=== PATIENT | female | born 2000 | race Caucasian/White ===

== ENCOUNTER 2019-12-12 18:34 | Emergency (ER) | payer SELFPAY ==
[~2019-12-12] VITALS: Ht 177.8 cm; Wt 61.4 kg
[~2019-12-12 18:34] MED LIST: ATIVAN0.5 MG PO
[2019-12-12 19:13] VITALS: BP 121/80
[2019-12-12] MEDS ORDERED: FIORICET PO (19:17)
[2019-12-12] MEDS ORDERED: PENICILLN VK500 MG PO (19:21)
== END 2019-12-12 19:20 | disposition home or self-care (01) | DRG 603 ==
LOC: ED 18:34
DX: L02.91 Cutaneous abscess, unspecified (principal); S02.5XXA Fracture of tooth (traumatic), initial encounter for closed fracture; X58.XXXA Exposure to other specified factors, initial encounter

== ENCOUNTER 2021-08-28 11:43 | Emergency (ER) | payer SELFPAY ==
[2021-08-28] VITALS (12 sets, daily range): BP systolic 102–143; BP diastolic 63–97
[~2021-08-28] VITALS: Ht 177.8 cm; Wt 59.0 kg
[~2021-08-28 11:43] MED LIST changes: +FIORICET PO; +PENICILLN VK500 MG PO
[2021-08-28 13:08] LABS: ALKALINE PHOSPHATASE 60 u/l (38-126); AMYLASE 95 u/l (30-110); ANION GAP 14 (6-22 (CALC)); BILIRUBIN, TOTAL 0.5 mg/dL (0.0-1.4); BUN 7 mg/dL (7-17); BUN/CREATININE RATIO 9 (12-20 (CALC)); CARBON DIOXIDE 22 mmol/l (22-30); CHLORIDE 107 mmol/l (95-108); CREATININE 0.8 mg/dL (0.5-1.0); ETHYL ALCOHOL 0 mg/dl (0-30); GFR FOR AFR.AMER. > 60 ML/MIN (>=60 (CALC)); GFR OTHER RACES > 60 ML/MIN (>=60 (CALC)); LIPASE 70 u/l (23-300); POTASSIUM 4.1 mmol/l (3.5-5.1); SGOT/AST 23 u/l (14-36); SODIUM 140 mmol/l (137-146); TOTAL PROTEIN 8.2 g/dL (6.3-8.2)
[2021-08-28 13:40] LABS: HEMATOCRIT 45.6 % (37.0-47.0); HEMOGLOBIN 15.4 g/dl (12.0-16.0); IMMATURE GRANULOCYTES 0.1 % (0.0-5.0); MEAN CELL VOLUME 92.9 fL CALC (80.0-100.0); MEAN CORPUSCULAR HGB 31.4 pG CALC (26.0-32.0); MEAN CORPUSCULAR HGB CONC 33.8 g/dL CAL (32.0-36.0); NEUT# 6.68 thou/uL (2.00-7.15); RED BLOOD COUNT 4.91 mill/uL (4.20-5.60); RED CELL DISTRI WIDTH 12.2 % (11.5-15.5)
[2021-08-28 13:49] LABS: URINE BILIRUBIN - DIPSTICK NEGATIVE (NEGATIVE); URINE BLOOD DIPSTICK NEGATIVE (NEGATIVE); URINE GLUCOSE - DIPSTICK NEGATIVE (NEGATIVE); URINE KETONE NEGATIVE (NEGATIVE); URINE LEUK ESTERASE MODERATE (NEGATIVE); URINE NITRITE - DIPSTICK NEGATIVE (Negative); URINE PROTEIN - DIPSTICK NEGATIVE (NEG-TRACE); URINE UROBILINOGEN - DIPSTICK 0.2 E.U./dL (0.2)
[2021-08-28 13:50] LABS: URINE BACTERIA FEW hpf; URINE COLOR STRAW; URINE EPITHELIAL CELLS FEW EPI/hpf (0-FEW)
[2021-08-28] MEDS ORDERED: CIPROFLOXACN500 MG PO (15:13)
[2021-08-28] MEDS ORDERED: ZOFRAN4 MG/TAB PO (15:13)
== END 2021-08-28 15:29 | disposition home or self-care (01) | DRG 690 ==
LOC: ED 11:43
DX: N39.0 Urinary tract infection, site not specified (principal); F12.10 Cannabis abuse, uncomplicated; N83.202 Unspecified ovarian cyst, left side; B96.20 Unspecified Escherichia coli [E. coli] as the cause of diseases classified elsewhere; Z16.12 Extended spectrum beta lactamase (ESBL) resistance; Z20.822 Contact with and (suspected) exposure to COVID-19
CPT/HCPCS: Q9967

== ENCOUNTER 2021-12-12 18:32 | Emergency (ER) | payer BC ==
[~2021-12-12] VITALS: Ht 177.8 cm; Wt 58.2 kg
[~2021-12-12 18:32] MED LIST changes: +CIPROFLOXACN500 MG PO; +ZOFRAN4 MG/TAB PO
[2021-12-12] MEDS ORDERED: PRENATAL VITAMINS (19:13)
[2021-12-12] MEDS ORDERED: IRON SUPPLEMENT (19:14)
[2021-12-12] MEDS ORDERED: MECLIZINE25 M1 PO (19:14)
[2021-12-12 20:09] VITALS: BP 131/84
[2021-12-12 20:30] VITALS: BP 112/68
[2021-12-12 20:31] LABS: HEMATOCRIT 35.9 % (37.0-47.0); HEMOGLOBIN 12.6 g/dl (12.0-16.0); IMMATURE GRANULOCYTES 0.1 % (0.0-5.0); MEAN CELL VOLUME 88.2 fL CALC (80.0-100.0); MEAN CORPUSCULAR HGB CONC 35.1 g/dL CAL (32.0-36.0); NEUT# 6.07 thou/uL (2.00-7.15); RED BLOOD COUNT 4.07 mill/uL (4.20-5.60)
[2021-12-12 20:50] LABS: ALKALINE PHOSPHATASE 45 u/l (38-126); AMYLASE 92 u/l (30-110); ANION GAP 18 (6-22 (CALC)); BILIRUBIN, TOTAL 0.5 mg/dL (0.0-1.4); BUN 8 mg/dL (7-17); BUN/CREATININE RATIO 12 (12-20 (CALC)); CARBON DIOXIDE 19 mmol/l (22-30); CHLORIDE 102 mmol/l (95-108); CREATININE 0.6 mg/dL (0.5-1.0); GFR FOR AFR.AMER. > 60 ML/MIN (>=60 (CALC)); GFR OTHER RACES > 60 ML/MIN (>=60 (CALC)); LIPASE 45 u/l (23-300); POTASSIUM 3.4 mmol/l (3.5-5.1); SGOT/AST 23 u/l (14-36); SODIUM 135 mmol/l (137-146); TOTAL PROTEIN 8.1 g/dL (6.3-8.2)
[2021-12-12 21:00] VITALS: BP 99/59
[2021-12-12 21:49] LABS: BETA-HCG, QUANT(RESULT NUMBER) 110240 mIU/mL
[2021-12-12 21:51] VITALS: BP 104/65
[2021-12-12 21:51] LABS: URINE BILIRUBIN - DIPSTICK NEGATIVE (NEGATIVE); URINE BLOOD DIPSTICK NEGATIVE (NEGATIVE); URINE COLOR YELLOW; URINE GLUCOSE - DIPSTICK NEGATIVE (NEGATIVE); URINE KETONE >=80 mg/dL (NEGATIVE); URINE LEUK ESTERASE NEGATIVE (NEGATIVE); URINE PROTEIN - DIPSTICK TRACE mg/dL (NEG-TRACE); URINE UROBILINOGEN - DIPSTICK 0.2 E.U./dL (0.2)
[2021-12-12 21:52] LABS: URINE NITRITE - DIPSTICK NEGATIVE (Negative)
[2021-12-12 22:00] VITALS: BP 99/56
[2021-12-12] MEDS ORDERED: PHENERGAN25 MG RE (22:04)
[2021-12-12 22:22] VITALS: BP 99/56
== END 2021-12-12 22:23 | disposition home or self-care (01) | DRG 833 ==
LOC: ED 18:32
PROVIDERS: Emergency Medicine
DX: O21.0 Mild hyperemesis gravidarum (principal); Z3A.01 Less than 8 weeks gestation of pregnancy

== ENCOUNTER 2022-12-02 12:59 | Emergency (ER) | payer OTHER ==
[~2022-12-02] VITALS: Ht 177.8 cm; Wt 78.7 kg
[2022-12-02] VITALS (7 sets, daily range): BP systolic 99–127; BP diastolic 58–80
[~2022-12-02 12:59] MED LIST changes: +IRON SUPPLEMENT; +MECLIZINE25 M1 PO; +PHENERGAN25 MG RE; +PRENATAL VITAMINS
[2022-12-02 13:38] LABS: BASO% 0.2 % (0-3); EOS% 2.7 % (0-8); HEMATOCRIT 40.1 % (37.0-47.0); HEMOGLOBIN 13.3 g/dl (12.0-16.0); IMMATURE GRANULOCYTES 0.1 % (0.0-5.0); MEAN CELL VOLUME 90.5 fL CALC (80.0-100.0); MEAN CORPUSCULAR HGB CONC 33.2 g/dL CAL (32.0-36.0); MONO% 8.7 % (2-13); NEUT# 5.6 thou/uL (2.00-7.15); NEUT% 65.3 % (42-76); RED BLOOD COUNT 4.43 mill/uL (4.20-5.60)
[2022-12-02 13:50] LABS: ALBUMIN 4.2 g/dL (3.2-5.0); ALKALINE PHOSPHATASE 59 u/l (38-126); ANION GAP 14 (6-22 (CALC)); BILIRUBIN, TOTAL 0.4 mg/dL (0.02-1.3); BUN 7 mg/dL (7-17); BUN/CREATININE RATIO 9 (12-20 (CALC)); CARBON DIOXIDE 20 mmol/l (22-30); CHLORIDE 107 mmol/l (95-108); CREATININE 0.8 mg/dL (0.5-1.0); GFR FOR AFR.AMER. > 60 ML/MIN (>=60 (CALC)); GFR OTHER RACES > 60 ML/MIN (>=60 (CALC)); LIPASE 66 u/l (23-300); POTASSIUM 3.6 mmol/l (3.5-5.1); SGOT/AST 32 u/l (14-36); SODIUM 138 mmol/l (137-146); TOTAL PROTEIN 7.5 g/dL (6.3-8.2)
[2022-12-02 15:49] LABS: URINE BILIRUBIN - DIPSTICK Negative (NEGATIVE); URINE BLOOD DIPSTICK Negative (NEGATIVE); URINE COLOR Yellow; URINE GLUCOSE - DIPSTICK Negative (NEGATIVE); URINE KETONE Negative (NEGATIVE); URINE LEUK ESTERASE Negative (NEGATIVE); URINE NITRITE - DIPSTICK Negative (Negative); URINE PROTEIN - DIPSTICK Negative (NEG-TRACE); URINE UROBILINOGEN - DIPSTICK 0.2 E.U./dL (0.2)
[2022-12-02] MEDS ORDERED: ONDANSETRON4 MG PO (16:13)
== END 2022-12-02 16:50 | disposition home or self-care (01) ==
LOC: ED 12:59
PROVIDERS: Nurse Practitioner
DX: U07.1 COVID-19 (principal); R52 Pain, unspecified; R10.31 Right lower quadrant pain; R10.32 Left lower quadrant pain